=== PATIENT | male | born 1930 | race Caucasian/White ===

== ENCOUNTER 2016-09-25 18:34 | Emergency (ER) | payer MEDICARE ==
[2016-09-25 18:45] VITALS: BP 158/78; PULSE 95; RESP 17; O2SAT 96
--- NOTE | 2016-09-25 19:09 | ED.REPORT ---
HPI-General Illness Date of Service Sep 25, 2016 ED Provider: Claudio Cardenas DO Patient is an 86 year old male with a history of CVA with residual dysarthria, hemiplegia of the right side, dementia, hypertension and chronic kidney disease who presents to the ED via EMS needing his feeding tube replaced after it became dislodged. The patient is unable to swallow or talk due to his condition. Nursing Notes Stated Complaint: NG TUBE PULLED OUT Chief Complaint: General Complaint Nursing Notes Reviewed: Yes Allergies: Coded Allergies: No Known Allergies (Unverified , 09/25/16) General Time Seen by MD: 19:08 Chief Complaint Other (NG tube replacement) Hx Obtained From: Courtroom Deputy, EMS Arrived By: Ambulance Sudden in Onset?: Yes Onset Occurred: 1 - 4 hours ago Symptom Duration: Since onset Recent Healthcare: Recent doctor visit Past Medical History Past Medical History CVA chronic kidney disease GERD osteoarthritis anemia hypothyroidism dementia anxiety Reports: Hypertension Reports: Atrial fibrillation Smoking History Unknown if Ever Smoker Social History Other Social History: Lives in [place] Ambulatory Status Independent Review of Systems +needs feeding tube replaced Unable to Obtain ROS Patient condition, Mental status Complete sys rev & neg: except as marked. Physical Exam Vital Signs Vital Signs Date Time Temp Pulse Resp B/P Pulse Ox O2 Delivery O2 Flow Rate FiO2 09/25/16 22:31 89 18 166/78 95 09/25/16 18:45 37.3 95 17 158/78 96 Room Air Initial VS: Reviewed General/Constitutional: Awake, Alert Head / Eyes: Atraumatic, Normocephalic, PERRL, EOMI Respiratory / Chest: Atraumatic, No respiratory distress Skin: Atraumatic, Color NL, No rash, Warm, Dry Interpretation & Diagnostics X-Ray Chest Interpretation Chest Xray Interpretation: IMPRESSION: Feeding tube projects across the GE junction. Dictated by: Arely Navarro MD, PhD on 09/25/2016 at 20:17 Approved by: Arely Navarro MD, PhD on 09/25/2016 at 20:21 View: Portable, 1 view Interpretation / Wet Read by: Interpret - Radiologist X-Ray Abdominal Interpretation IMPRESSION: Tip of Dobbhoff projects over the proximal duodenum. Dictated by: Arely Navarro MD, PhD on 09/25/2016 at 21:26 Approved by: Arely Navarro MD, PhD on 09/25/2016 at 21:27 Interpretation / Wet Read by: Interpret - Radiologist Procedures NG Tube Insertion Time: 19:55 Procedure Performed by: ED physician Site of Insertion: Nare left # of Attempts: 2 Size of Oral/NG Tube: 18 Fr Placement/Verification/Secured: Inserted w/o difficulty, Placement by auscultation, Verified by auscultation, Verified by x-ray Post-Procedure / Complications: No complications, Tolerated procedure well, Patient stable Re-Eval/Medical Decision Med Decision/Clinical Course The feeding tube was placed without difficulty. Second x-ray show that it is in the proximal duodenum. Consulted with radiologist. This should be completely usable now. We will discharge back home. Time of Eval: 19:25 Re-Evaluation/Progress Note: Discussed plan to insert new feeding tube. Time of Eval: 21:33 Re-Evaluation/Progress Note: Discussed all results and plan for discharge. Patient understands and agrees to plan. All questions were addressed. Counseled Regarding: Diagnosis, Lab results, Need for follow-up, When/why to return to ED Discharge & Departure Primary Impression: Encounter for nasogastric (NG) tube placement Disposition: Home Discharge Condition All VS Reviewed: Yes Condition: Stable Patient Instructions: Nasogastric Tube (DC) Additional Instructions: We replaced your feeding tube today. Don't touch or pull at it. That will cause it to become dislodged again. Follow up with your primary care physician later next week. Return to the emergency department if you develop any new or concerning symptoms Referrals: Pieter Garcia Attestation Portions of this note were transcribed by Abiola Frankel. I, Dr. Cardenas personally performed the history, physical exam and medical decision-making; I reviewed and confirmed the accuracy of the information in the transcribed note. Signed by: Rachel Cary, 09/25/16 copies to: Pieter Garcia Todd P DO Sep 25, 2016 19:09 Danuta Frankel Sep 25, 2016 19:22
[2016-09-25] MEDS ORDERED: Lidocaine 2% 5 mL Topical Jelly MUC_MEMBRM ONE (19:25)
--- NOTE | 2016-09-25 20:22 | DRSVH ---
PROCEDURE: X-RAY CHEST ONE VIEW, PORTABLE ([id number]) INDICATIONS: feeding tube placement TECHNIQUE: One view of the chest was acquired. COMPARISON: None. FINDINGS: Surgical changes and devices: Feeding tube projects across the GE junction with the tip in the proxi mal stomach. Lungs and pleura: No pleural effusions or pneumothorax. Lungs are clear. Mediastinum: Mediastinal contours appear normal. Heart size is normal. Bones and chest wall: No suspicious bony lesions. Overlying soft tissues appear unremarkable. IMPRESSION: Feeding tube projects across the GE junction. Dictated by: Arely Navarro MD, PhD on 09/25/2016 at 20:17 Approved by: Arely Navarro MD, PhD on 09/25/2016 at 20:21
--- NOTE | 2016-09-25 21:28 | DRSVH ---
PROCEDURE: X-RAY ABDOMEN, ONE VIEW ([id number]) INDICATIONS: NG tube placement TECHNIQUE: One view of the abdomen acquired. COMPARISON: None. FINDINGS: Surgical changes and devices: Presence of Dobbhoff feeding tube noted. Tip of Dobbhoff feeding tube projects over the expected location of the proximal duodenum. Bowel: Bowel gas pattern is normal. Soft tissues: No suspicious abdominal calcifications. Visualized solid organ contours appear normal in size. Bones: No suspicious bony lesions. IMPRESSION: Tip of Dobbhoff projects over the proximal duodenum. Dictated by: Arely Navarro MD, PhD on 09/25/2016 at 21:26 Approved by: Arely Navarro MD, PhD on 09/25/2016 at 21:27
[2016-09-25 22:31] VITALS: BP 166/78; PULSE 89; RESP 18; O2SAT 95
== END 2016-09-25 22:30 | disposition home or self-care (01) ==
LOC: SED 18:34
DX: Z43.1 Encounter for attention to gastrostomy (principal); I13.10 Hypertensive heart and chronic kidney disease without heart failure, with stage 1 through stage 4 chronic kidney disease, or unspecified chronic kidney disease; K21.9 Gastro-esophageal reflux disease without esophagitis; N18.9 Chronic kidney disease, unspecified

== ENCOUNTER 2016-09-28 16:13 | Emergency (ER) | payer MEDICARE ==
[2016-09-28 16:15] VITALS: BP 138/87; PULSE 84; O2SAT 96
--- NOTE | 2016-09-28 16:28 | ED.REPORT ---
HPI-General Illness Date of Service Sep 28, 2016 ED Provider: Dr. Kenny Pt is an 86 year old male with a hx of CVA who presents to the ED with concerns for a dislodged feeding tube. He is non-verbal at baseline. Nursing Notes Stated Complaint: DISLODGED FEEDING TUBE Chief Complaint: General Complaint Nursing Notes Reviewed: Yes Allergies: Coded Allergies: No Known Allergies (Unverified , 09/25/16) General Time Seen by MD: 16:27 Chief Complaint Other (Dislodged feeding tube) Hx Obtained From: Soil Conservation Technician Arrived By: Walk-in Sudden in Onset?: Yes Onset Occurred: Just prior to arrival Symptom Duration: Since onset Severity: Current: No pain currently Severity: Maximum: No pain Similar Sx Previous: Yes Past Medical History Past Medical History CVA chronic kidney disease GERD osteoarthritis anemia hypothyroidism dementia anxiety Reports: Hypertension Reports: Atrial fibrillation Smoking History Unknown if Ever Smoker Social History Other Social History: Lives in [facility] Ambulatory Status Independent Review of Systems Unable to Obtain ROS Patient condition Complete sys rev & neg: except as marked. Physical Exam Vital Signs Vital Signs Date Time Temp Pulse Resp B/P Pulse Ox O2 Delivery O2 Flow Rate FiO2 09/28/16 16:15 36.9 84 138/87 96 Room Air Initial VS: Reviewed General/Constitutional: Well-developed, Well-nourished Head / Eyes: Atraumatic, Normocephalic, PERRL ENT: Mucous membranes moist, Conjunctiva normal, No scleral icterus Neck: Supple, Non-tender, Full range of motion Respiratory: Breath sounds normal, Clear to auscultation, No respiratory distress Cardiovascular: Regular rate & rhythm, Heart sounds normal, Intact distal pulses Abdomen / GI: Soft, Non-tender, No guarding, No rebound, No distention Skin: Warm, Dry, No cyanosis General/Constitutional: Awake Non-verbal at baseline Is able to follow basic commands and answer yes or no questions Re-Eval/Medical Decision Source of Hx: Old records Counseled Regarding: Diagnosis, Need for follow-up, When/why to return to ED Discharge & Departure Primary Impression: Encounter for nasogastric (NG) tube placement Disposition: Home Discharge Condition All VS Reviewed: Yes Condition: Stable Referrals: Pieter Garcia DO (PCP) Care Transferred to: [facility] Transferred at: 18:26 Scribe Attestation Portions of this note were transcribed by Nohemi Soto. I, Dr. Kenny personally performed the history, physical exam and medical decision-making; I reviewed and confirmed the accuracy of the information in the transcribed note. Signed by: Rachel García, 09/28/2016 [Time]. copies to: Pieter Garcia Kirk H MD Sep 28, 2016 16:27 LONNY SOTO Sep 28, 2016 16:30
[2016-09-28 18:59] VITALS: BP 147/82; PULSE 84; O2SAT 97
--- NOTE | 2016-09-28 19:34 | DRSVH ---
PROCEDURE: X-RAY CHEST ONE VIEW, PORTABLE ([id number]) INDICATIONS: confirm feeding tube TECHNIQUE: One view of the chest was acquired. COMPARISON: [facility], CR, XR CHEST 1VW (PORTABLE), 09/25/2016, 19:54. FINDINGS: Surgical changes and devices: Feeding tube with tip in the proximal stomach. Lungs and pleura: No pleural effusions or pneumothorax. Lungs are clear. Mediastinum: Mediastinal contours appear normal. Heart size is normal. Bones and chest wall: No suspicious bony lesions. Overlying soft tissues appear unremarkable. IMPRESSION: Feeding tube with tip in the proximal stomach. Consider advancement to allow for eventual migration of the feeding tube into the duodenum. Dictated by: Tab Crowder M.D. on 09/28/2016 at 19:31 Approved by: Tab Crowder M.D. on 09/28/2016 at 19:32
[2016-09-28 20:55] VITALS: BP 164/87; PULSE 94; RESP 20; O2SAT 96
[2016-09-28 22:09] VITALS: BP 132/83; PULSE 70; RESP 20; O2SAT 95
== END 2016-09-28 22:42 ==
LOC: SED 16:13
DX: Z46.82 Encounter for fitting and adjustment of non-vascular catheter (principal); K21.9 Gastro-esophageal reflux disease without esophagitis; E03.9 Hypothyroidism, unspecified; I13.10 Hypertensive heart and chronic kidney disease without heart failure, with stage 1 through stage 4 chronic kidney disease, or unspecified chronic kidney disease; N18.9 Chronic kidney disease, unspecified; Z86.73 Personal history of transient ischemic attack (TIA), and cerebral infarction without residual deficits

== ENCOUNTER 2016-09-29 09:36 | Emergency (ER) | payer MEDICARE ==
[2016-09-29 09:52] VITALS: BP 142/77; PULSE 86; RESP 15; O2SAT 94
--- NOTE | 2016-09-29 09:54 | ED.REPORT ---
HPI-General Illness Date of Service Sep 29, 2016 ED Provider: Aiden Kenny MD The pt is an 86 y/o male w/ a hx of a CVA, GERD, dementia, and HTN presenting to the ED via EMS due a displaced NGT tube. The pt was seen here yesterday due to him pulling out his feeding tube and is unsure of why he is here today. He was here in the emergency department yesterday for the same indication Nursing Notes Stated Complaint: FEEDING TUBE NEEDS REPLACED Chief Complaint: Displaced NGT tube Nursing Notes Reviewed: Yes Allergies: Coded Allergies: No Known Allergies (Unverified , 09/25/16) General Time Seen by MD: 09:52 Chief Complaint Other (Displaced NGT tube ) Hx Obtained From: EMS Arrived By: Ambulance Sudden in Onset?: Yes Onset Occurred: Just prior to arrival Symptom Duration: Since onset Recent Healthcare: No recent hospitalization, Recent doctor visit Similar Sx Previous: Yes Past Medical History Past Medical History CVA chronic kidney disease GERD osteoarthritis anemia hypothyroidism dementia anxiety Reports: Hypertension Reports: Atrial fibrillation Past Surgical History None reported Smoking History Unknown if Ever Smoker Social History Other Social History: Lives in correction Ambulatory Status Independent Review of Systems Unable to Obtain ROS Patient condition Physical Exam Vital Signs Vital Signs Date Time Temp Pulse Resp B/P Pulse Ox O2 Delivery O2 Flow Rate FiO2 09/29/16 13:34 88 19 129/63 96 Room Air 09/29/16 09:52 37 86 15 142/77 94 Room Air Initial VS: Reviewed General/Constitutional: Awake Demented Head / Eyes: Atraumatic, Normocephalic ENT: Atraumatic, Airway patent, Mucous membranes moist Neck: Atraumatic, Supple, Full range of motion Respiratory / Chest: Atraumatic, Breath sounds NL, Breath sounds = bilat Cardiovascular: Heart rate NL, Regular rhythm, Heart sounds NL, Peripheral circulation NL Abdomen: Atraumatic, Soft, Non-tender Small hernia on R that is easily reducible Skin: Warm, Dry Bandage on R arm Mental Status: Positive: Responds to verbal stim Significant dysarthria Re-Eval/Medical Decision Med Decision/Clinical Course I had 2 separate discussions with Azra Dyson who is this patient's daughter and the first one listed on the emergency contact list from [facility]. After a swallow evaluation was accomplished which resulted in learning that he definitely will have some degree of aspiration if he eats any solids or liquids and he fatigues easily so even if he could eat he would not have this down to take in adequate calories. I spoke to Azra about this and told her that her options were to replace the NG tube with the realization that he may very well port out of the coming hours or days the only way to get around that would be to tie his hands down. Additional options including PEG tube placement in the coming days. Additional options include IV hydration only and home without an NG tube versus home with no IV or NG tube. I discussed with her the expected outcomes of all these above treatments and she says that she would like him sent home with just IV and that we not replace the the NG tube for now and that they would make a decision in the coming days regarding a PEG tube. Time of Eval: 10:06 Re-Evaluation/Progress Note: Called pts daughter to discuss plan to have a speech therapy see the pt and to a swallow evaluation. The daughter says the pt was eating applesauce just a week ago. Time of Eval: 11:28 Re-Evaluation/Progress Note: Called the pt's daughter and discussed the results of the swallow evaluation. Discussed possible options for treatment. Counseled Regarding: Diagnosis, Lab results, Need for follow-up, When/why to return to ED Discharge & Departure Primary Impression: Encounter for nasogastric (NG) tube placement Disposition: Home Discharge Condition All VS Reviewed: Yes Condition: Stable Additional Instructions: Azra Dyson, daughter, instructed us to not replace the NG tube at this time. She recommended IV line placement for maintenance hydration. I therefore recommended the following: One half normal saline with 20 mEq of potassium chloride to be given at a rate of 120 mL per hour. This order should in 72 hours. Referrals: Pieter Garcia DO (PCP) Scribe Attestation Portions of this note were transcribed by Zeeshan Cota. I, Dr. Kenny personally performed the history, physical exam and medical decision-making; I reviewed and confirmed the accuracy of the information in the transcribed note. copies to: Pieter Garcia Kirk H MD Sep 29, 2016 09:54 Zeeshan Cota Sep 29, 2016 11:11
[2016-09-29 13:34] VITALS: BP 129/63; PULSE 88; RESP 19; O2SAT 96
== END 2016-09-29 13:20 | disposition home or self-care (01) ==
LOC: EDBD 09:36 → SED 09:36
DX: Z46.82 Encounter for fitting and adjustment of non-vascular catheter (principal); K21.9 Gastro-esophageal reflux disease without esophagitis; I13.10 Hypertensive heart and chronic kidney disease without heart failure, with stage 1 through stage 4 chronic kidney disease, or unspecified chronic kidney disease; N18.9 Chronic kidney disease, unspecified; Z86.73 Personal history of transient ischemic attack (TIA), and cerebral infarction without residual deficits